=== PATIENT | female | born 1980 | race Caucasian/White ===

== ENCOUNTER → 2017-01-13 | Outpatient (CLI) | payer MEDICAID | LOC: LAB 15:46 | DX: E66.9 Obesity, unspecified (principal); R10.9 Unspecified abdominal pain ==

== ENCOUNTER 2017-05-20 09:00 | Outpatient (RCR) | payer MEDICAID | END 2017-05-24 | disposition home or self-care (01) | LOC: PT | DX: Z47.89 Encounter for other orthopedic aftercare (principal) ==

== ENCOUNTER 2017-11-08 09:27 | Emergency (ER) | payer MEDICAID ==
[~2017-11-08] VITALS: Ht 175.3 cm; Wt 116.4 kg
[2017-11-08] MEDS ORDERED: BACTRIM DS TAB1 EACH PO (09:33)
[2017-11-08] MEDS ORDERED: CEPHALEXIN500 M1 PO (10:53)
[2017-11-08 11:23] VITALS: BP 140/86
== END 2017-11-08 11:01 | disposition home or self-care (01) ==
LOC: ED 09:27
DX: L02.412 Cutaneous abscess of left axilla (principal)

== ENCOUNTER → 2017-11-10 | Outpatient (CLI) | payer MEDICAID ==
[2017-11-08 11:23] VITALS: BP 140/86
[~2017-11-10] MED LIST: BACTRIM DS TAB1 EACH PO; CEPHALEXIN500 M1 PO
== END ==
LOC: RAD 10:23
DX: L02.412 Cutaneous abscess of left axilla (principal); B99.9 Unspecified infectious disease

== ENCOUNTER 2017-11-20 14:00 | Outpatient (RCR) | payer MEDICAID | END 2017-12-06 | disposition home or self-care (01) | LOC: PT | DX: M22.01 Recurrent dislocation of patella, right knee (principal) ==

== ENCOUNTER → 2018-01-25 | Outpatient (CLI) | payer MEDICAID ==
[2018-01-25 10:08] LABS: BASO # 0.1 (0.02-0.10); EOS # 0.2 (0.04-0.40); EOS % 2.6 % (1.0-5.0); HEMATOCRIT 39.7 % (37.0-47.0); HEMOGLOBIN 12.4 g/dL (12.5-16.0); LYMPH# 1.8 (1.50-4.00); MEAN CELL VOLUME 82 fl (78-100); MEAN CORPUSCULAR HEMOGLOBIN 26 pg (27-31); MEAN CORPUSCULAR HGB CONC 31 g/dL (33-37); MEAN PLATELET VOLUME 11.7 fl (7.4-10.4); MONO # 0.5 (0.20-0.80); NEU # 4.1 (1.40-6.50); PLATELET COUNT 279 K/mm3 (130-400); RED BLOOD COUNT 4.87 M/mm3 (4.10-5.30); RED CELL DISTRIBUTION WIDTH 15.7 % (11.5-14.5); WHITE BLOOD COUNT 6.6 K/mm3 (4.8-10.8)
[2018-01-25 10:12] LABS: ALBUMIN 3.9 g/dL (3.5-5.0); CALCIUM 8.8 mg/dL (8.4-10.2); POTASSIUM 4.1 mmol/L (3.6-5.0); TOTAL BILIRUBIN 0.6 mg/dL (0.2-1.3); TOTAL PROTEIN 6.8 g/dL (6.3-8.2)
== END ==
LOC: LAB 09:35
PROVIDERS: Family Medicine
DX: Z01.419 Encounter for gynecological examination (general) (routine) without abnormal findings (principal); R73.9 Hyperglycemia, unspecified; R53.83 Other fatigue

== ENCOUNTER → 2018-02-06 | Outpatient (CLI) | payer MEDICAID | LOC: RAD 14:17 | DX: M77.32 Calcaneal spur, left foot (principal) ==

== ENCOUNTER → 2018-02-10 | Outpatient (CLI) | payer MEDICAID | LOC: RAD 13:45 | DX: M77.32 Calcaneal spur, left foot (principal) ==

== ENCOUNTER → 2018-06-01 | Outpatient (CLI) | payer MEDICAID | LOC: LAB 10:41 | DX: N89.8 Other specified noninflammatory disorders of vagina (principal) ==

== ENCOUNTER → 2018-06-03 | Outpatient (CLI) | payer MEDICAID | LOC: RAD 12:53 | DX: N80.9 Endometriosis, unspecified (principal) ==

== ENCOUNTER → 2019-04-05 | Outpatient (CLI) | payer MEDICAID ==
[2019-04-05 16:42] LABS: EOS # 0.2 (0.04-0.40); HEMATOCRIT 41.2 % (37.0-47.0); LYMPH# 1.4 (1.50-4.00); MEAN CELL VOLUME 81 fl (78-100); MEAN CORPUSCULAR HEMOGLOBIN 26 pg (27-31); MEAN CORPUSCULAR HGB CONC 32 g/dL (33-37); MEAN PLATELET VOLUME 10.9 fl (7.4-10.4); MONO # 0.5 (0.20-0.80); NEU # 6.4 (1.40-6.50); PLATELET COUNT 291 K/mm3 (130-400); RED BLOOD COUNT 5.08 M/mm3 (4.10-5.30); RED CELL DISTRIBUTION WIDTH 15.1 % (11.5-14.5); WHITE BLOOD COUNT 8.5 K/mm3 (4.8-10.8)
[2019-04-05 16:47] LABS: ALBUMIN 3.9 g/dL (3.5-5.0); POTASSIUM 3.9 mmol/L (3.5-5.1)
[2019-04-05 16:48] LABS: CALCIUM 8.7 mg/dL (8.3-10.5)
[2019-04-05 16:50] LABS: TOTAL PROTEIN 7.1 g/dL (6.4-8.3)
[2019-04-05 16:52] LABS: TOTAL BILIRUBIN 0.4 mg/dL (0.2-1.2)
== END ==
LOC: LAB 16:09
PROVIDERS: Family Medicine
DX: J10.1 Influenza due to other identified influenza virus with other respiratory manifestations (principal); E78.5 Hyperlipidemia, unspecified

== ENCOUNTER → 2019-04-18 | Outpatient (CLI) | payer MEDICAID | LOC: RAD 15:12 | DX: N92.0 Excessive and frequent menstruation with regular cycle (principal); R93.89 Abnormal findings on diagnostic imaging of other specified body structures ==

== ENCOUNTER → 2020-05-04 | Outpatient (CLI) | payer MEDICAID ==
[2020-05-04 16:21] LABS: EOS # 0.2 (0.04-0.40); EOS % 3.1 % (1.0-5.0); HEMATOCRIT 39.3 % (37.0-47.0); LYMPH# 1.8 (1.50-4.00); MEAN CELL VOLUME 80 fl (78-100); MEAN CORPUSCULAR HGB CONC 31 g/dL (33-37); MEAN PLATELET VOLUME 11.1 fl (7.4-10.4); MONO # 0.4 (0.20-0.80); NEU # 3.5 (1.40-6.50); PLATELET COUNT 262 K/mm3 (130-400); RED BLOOD COUNT 4.93 M/mm3 (4.10-5.30); RED CELL DISTRIBUTION WIDTH 15.6 % (11.5-14.5); WHITE BLOOD COUNT 5.9 K/mm3 (4.8-10.8)
[2020-05-04 16:32] LABS: ALBUMIN 3.9 g/dL (3.5-5.0); POTASSIUM 4.2 mmol/L (3.5-5.1)
[2020-05-04 16:33] LABS: CALCIUM 8.7 mg/dL (8.3-10.5); MEAN CORPUSCULAR HEMOGLOBIN 24 pg (27-31)
[2020-05-04 16:34] LABS: TOTAL PROTEIN 6.8 g/dL (6.4-8.3)
[2020-05-04 16:36] LABS: TOTAL BILIRUBIN 0.2 mg/dL (0.2-1.2)
[2020-05-06 18:29] LABS: FOLLICLE STIMULATING HORMONE 5.3 mIU/mL (()); LUTENIZING HORMONE 2.2 mIU/mL (())
[2020-05-06 18:30] LABS: PROGESTERONE <0.1 ng/mL (())
== END ==
LOC: LAB 16:04
PROVIDERS: Family Medicine
DX: Z00.00 Encounter for general adult medical examination without abnormal findings (principal); E78.5 Hyperlipidemia, unspecified; N92.1 Excessive and frequent menstruation with irregular cycle

== ENCOUNTER → 2020-06-13 | Outpatient (CLI) | payer MEDICAID | LOC: RAD 14:25 | DX: N20.0 Calculus of kidney (principal); Z98.51 Tubal ligation status | CPT/HCPCS: Q9967 ==

== ENCOUNTER → 2020-10-30 | Outpatient (CLI) | payer MEDICAID ==
[2020-10-30 16:29] LABS: HEMATOCRIT 39.8 % (37.0-47.0); HEMOGLOBIN 12.3 g/dL (12.5-16.0); MEAN CELL VOLUME 80 fl (78-100); MEAN CORPUSCULAR HEMOGLOBIN 25 pg (27-31); MEAN CORPUSCULAR HGB CONC 31 g/dL (33-37); MEAN PLATELET VOLUME 11.1 fl (7.4-10.4); PLATELET COUNT 316 K/mm3 (130-400); RED BLOOD COUNT 4.95 M/mm3 (4.10-5.30); RED CELL DISTRIBUTION WIDTH 15.7 % (11.5-14.5); WHITE BLOOD COUNT 8.6 K/mm3 (4.8-10.8)
[2020-10-30 16:45] LABS: ALBUMIN 4.1 g/dL (3.5-5.0); POTASSIUM 4.1 mmol/L (3.5-5.1)
[2020-10-30 16:46] LABS: CALCIUM 9.3 mg/dL (8.3-10.5)
[2020-10-30 16:48] LABS: TOTAL PROTEIN 7.6 g/dL (6.4-8.3)
[2020-10-30 16:49] LABS: TOTAL BILIRUBIN 0.3 mg/dL (0.2-1.2)
== END ==
LOC: LAB 16:16
PROVIDERS: Family Medicine
DX: D50.9 Iron deficiency anemia, unspecified (principal); R53.83 Other fatigue; R60.9 Edema, unspecified

== ENCOUNTER → 2020-11-05 | Outpatient (CLI) | payer MEDICAID | LOC: RAD 07:38 | DX: R13.10 Dysphagia, unspecified (principal); T18.108A Unspecified foreign body in esophagus causing other injury, initial encounter ==

== ENCOUNTER → 2021-09-17 | Outpatient (CLI) | payer MEDICAID ==
[2021-09-17 14:49] LABS: BASO # 0.05 K/mm3 (0.02-0.10); EOS # 0.19 K/mm3 (0.04-0.40); HEMATOCRIT 36.8 % (37.0-47.0); HEMOGLOBIN 11.6 g/dL (12.5-16.0); MEAN CELL VOLUME 79 fl (78-100); MEAN CORPUSCULAR HEMOGLOBIN 25 pg (27-31); MEAN CORPUSCULAR HGB CONC 32 g/dL (33-37); MEAN PLATELET VOLUME 10.9 fl (7.4-10.4); PLATELET COUNT 291 K/mm3 (130-400); RED BLOOD COUNT 4.69 M/mm3 (4.10-5.30); RED CELL DISTRIBUTION WIDTH 16.3 % (11.5-14.5); WHITE BLOOD COUNT 6.4 K/mm3 (4.8-10.8)
[2021-09-17 15:02] LABS: POTASSIUM 3.9 mmol/L (3.5-5.1)
[2021-09-17 15:03] LABS: ALBUMIN 4.1 g/dL (3.5-5.0)
[2021-09-17 15:04] LABS: CALCIUM 9.4 mg/dL (8.3-10.5)
[2021-09-17 15:05] LABS: TOTAL PROTEIN 7.2 g/dL (6.4-8.3)
[2021-09-17 15:07] LABS: TOTAL BILIRUBIN 0.4 mg/dL (0.2-1.2)
== END ==
LOC: LAB 14:34
PROVIDERS: Family Medicine
DX: Z00.00 Encounter for general adult medical examination without abnormal findings (principal); M77.32 Calcaneal spur, left foot; M77.31 Calcaneal spur, right foot; E78.5 Hyperlipidemia, unspecified; L73.2 Hidradenitis suppurativa; D50.9 Iron deficiency anemia, unspecified; E66.9 Obesity, unspecified; R60.9 Edema, unspecified; R73.9 Hyperglycemia, unspecified

== ENCOUNTER → 2023-09-10 | Outpatient (CLI) | payer OTHER | LOC: RAD 09:22 | DX: M17.11 Unilateral primary osteoarthritis, right knee (principal) ==

== ENCOUNTER 2023-10-06 14:31 | Outpatient (RCR) | payer OTHER | END 2023-11-04 | disposition home or self-care (01) | LOC: PT | DX: M25.571 Pain in right ankle and joints of right foot (principal) ==